=== PATIENT | female | born 1955 | race Caucasian/White ===

== ENCOUNTER 2017-09-07 15:10 | Emergency (ER) | payer OTHER ==
[~2017-09-07] VITALS: Ht 167.6 cm; Wt 84.9 kg
[~2017-09-07 15:10] MED LIST: ALEN70TA39 PO; LOVA20TA PO; OMEP20TA PO; SYNT112T PO; TRAZ100 PO
[2017-09-07 15:15] VITALS: BP 131/66; PULSE 76; RESP 16; TEMP 97.9; O2SAT 96
[2017-09-07] MEDS ORDERED: ALEN1TAB48 PO (15:36)
[2017-09-07] MEDS ORDERED: TRAZ100T10 PO (15:36)
[2017-09-07] MEDS ORDERED: tylenol pm PO (15:36)
[2017-09-07] MEDS ORDERED: LOVA20TA PO (15:36)
[2017-09-07] MEDS ORDERED: LEVO112T2 PO (15:36)
[2017-09-07] MEDS ORDERED: LIDOCAINE HCL 1% 50 ML VIAL INFIL ONE (16:15)
[2017-09-07] MEDS ORDERED: LIDOCAINE HCL 1% PF 30 ML VIAL ONE (16:16)
[2017-09-07] MEDS ORDERED: BACT800T5 PO (16:38)
--- NOTE | 2017-09-07 16:44 | PD ---
HPI Chief Complaint: Skin Problem Time Seen by Provider: 15:53 Travel History International Travel<30 days: No Contact w/Intl Traveler<30days: No Traveled to known affect area: No History of Present Illness HPI 61-year-old female presents to emergency room for evaluation of bug bite to the left forearm that occurred 2 days ago. [place] large, flying, round bug landed on her arm. She tried to knock it off but it was attached to her skin. She reports associated itching but denies significant pain. She has been trying to take care of herself but it seems to be worsening. She is concerned the stinger was left in her skin. She denies fever, chills, nausea, vomiting. Denies any history of diabetes. PFSH Past Medical History ADHD: Yes Heart Rhythm Problems: No Cancer: No Cardiac Catheterization: No Cardiovascular Problems: No High Cholesterol: Yes Congestive Heart Failure: No Diabetes: No Diminished Hearing: No Endocrine: Yes GERD: Yes Genitourinary: No Implanted Vascular Access Dvce: No Insomnia: Yes Musculoskeletal: Yes (NECK/ BACK INJURY IN ') Neurologic: Yes (INSOMNIA) Psychiatric: No Reproductive: Yes (MENOPAUSAL) Respiratory: No Immunizations Current: Yes Thyroid Disease: Yes (HYPO) Tetanus Vaccination: > 5 Years Influenza Vaccination: Yes PNEUMOCCOCAL Vaccine (Year): 1 ?: Not Menopausal: Yes Past Surgical History Section: Yes Coronary Artery Bypass Graft: No Gynecologic Surgery: Yes () Tonsillectomy: Yes Other Surgery: Yes (HEMORRHOIDECTOMY) Family History Family Myocardial Infarction: Yes Social History Alcohol Use: Yes (RARELY) Tobacco Use: No (quit) Substance Use: No (denies ) Allergies-Medications (Allergen,Severity, Reaction): Coded Allergies: diphenhydramine (Unverified Allergy, Severe, 09/07/17) Uncoded Allergies: ANTIHISTAMINES (Adverse Reaction, Intermediate, HYPER FEELING, 09/07/17) . Reported Meds & Prescriptions Reported Meds & Active Scripts Active Bactrim DS (Sulfamethoxazole-Trimethoprim) 800-160 Mg Tab 1 Tab PO BID Reported [tylenol pm] 2 Tab PO HS Trazodone (Trazodone HCl) 100 Mg Tablet 100 Mg PO HS Alendronate (Alendronate Sodium) 70 Mg Tab 70 Mg PO Q7D Lovastatin 20 Mg Tab 20 Mg PO DAILY Levothyroxine (Levothyroxine Sodium) 112 Mcg Tab 112 Mcg PO DAILY Review of Systems Except as stated in HPI: all other systems reviewed are Neg Physical Exam Narrative GENERAL: Well-nourished, well-developed female no acute distress. Afebrile. Ambulatory. SKIN: Focused skin assessment warm/dry. There is an indurated area in the left proximal forearm which measures about 2 cm in diameter. It is fluctuant but there is no pointing or drainage. There is a zone of inflammation around it but no lymphangitis. HEAD: Normocephalic. EYES: No scleral icterus. No injection or drainage. NECK: Supple, trachea midline. No JVD or lymphadenopathy. CARDIOVASCULAR: Regular rate and rhythm without murmurs, gallops, or rubs. RESPIRATORY: Breath sounds equal bilaterally. No accessory muscle use. MUSCULOSKELETAL: No cyanosis. Very mild edema of the lateral left forearm. 2+ radial pulse. Radial, ulnar, median nerves intact. Data Data Last Documented VS Vital Signs Date Time Temp Pulse Resp B/P (MAP) Pulse Ox O2 Delivery O2 Flow Rate FiO2 09/07/17 15:15 97.9 76 16 131/66 (87) 96 Orders Orders Lidocaine 1% Inj (50 Ml) (Xylocaine 1% I (09/07/17 16:15) Lidocaine Pf 1% Inj (Xylocaine-Mpf 1% In (09/07/17 16:16) MDM Medical Decision Making Medical Screen Exam Complete: Yes Emergency Medical Condition: Yes Medical Record Reviewed: Yes Differential Diagnosis Insect bite, allergic reaction, abscess, cellulitis Narrative Course 61-year-old female presents to the emergency room for evaluation of a bug bite to her left arm that occurred 2 days ago. Patient saw the bug bite her and it has been itchy since then. No fevers. Physical exam reveals mild induration with surrounding erythema. No lymphangitis. There appears to be a tiny stinger at the center of the erythema. No abscess. Foreign body removal was attempted without obvious success. Patient was discharged with prescription for Bactrim and told to follow-up with primary care physician or return for worsening symptoms. She understands and agrees to plan. Procedures Procedure Narrative Foreign body removal: The area was prepped and was sterilely draped. A subcutaneous wheal of 1% lidocaine with a total number 2 mL was used to anesthetize the area properly. A number 11 scalpel was used to make a 3 mm incision across the area of the foreign body. No obvious foreign body removal. Sterile dressing applied. Diagnosis Primary Impression: Insect bite of left upper arm with infection Qualified Codes: S40.862A - Insect bite (nonvenomous) of left upper arm, initial encounter; L08.9 - Local infection of the skin and subcutaneous tissue, unspecified; W57.XXXA - Bitten or stung by nonvenomous insect and other nonvenomous arthropods, initial encounter Referrals: Primary Care Physician Additional Instructions: Rest and drink plenty of fluids. Take Bactrim as directed, until gone. Follow up with a primary care physician. Return to emergency room for worsening symptoms, as discussed. Scripts Sulfamethoxazole-Trimethoprim (Bactrim DS) 800-160 Mg Tab 1 TAB PO BID for Infection, #20 TAB 0 Refills Prov: Ilia Bray MD 09/07/17 Disposition: 01 DISCHARGE HOME Condition: Stable Brandi Pitt Sep 07, 2017 16:44
[2017-09-11] MEDS ORDERED: DIPH25TA31 PO (16:58)
== END 2017-09-07 16:52 | disposition home or self-care (01) ==
LOC: PHEFT 15:10
DX: S50.862A Insect bite (nonvenomous) of left forearm, initial encounter (principal); L08.9 Local infection of the skin and subcutaneous tissue, unspecified; W57.XXXA Bitten or stung by nonvenomous insect and other nonvenomous arthropods, initial encounter; Y92.832 Beach as the place of occurrence of the external cause; F90.9 Attention-deficit hyperactivity disorder, unspecified type; E78.00 Pure hypercholesterolemia, unspecified; K21.9 Gastro-esophageal reflux disease without esophagitis; E03.9 Hypothyroidism, unspecified; Z87.891 Personal history of nicotine dependence
CPT/HCPCS: 10120